=== PATIENT | male | born 1940 | race Caucasian/White ===

== ENCOUNTER 2018-09-26 05:59 | Day surgery (SDC) | payer MEDICARE, OTHER ==
[2018-09-25 15:25] LABS: BASOPHILS # (AUTO) 0.1 X10'3 (0-0.2); BASOPHILS % (AUTO) 0.7 % (0-1); EOSINOPHILS # (AUTO) 0.1 X10'3 (0-0.9); EOSINOPHILS % (AUTO) 0.6 % (0-6); HEMATOCRIT 46.8 % (42.0-52.0); HEMOGLOBIN 15.4 g/dl (14.0-17.9); LYMPHOCYTES # (AUTO) 1.1 X10'3 (1.1-4.8); LYMPHOCYTES % (AUTO) 12.5 % (21-51); MEAN CORPUSCULAR HEMOGLOBIN 30.3 PG (27.0-31.0); MEAN CORPUSCULAR HGB CONC 32.8 g/dL (33.0-36.5); MEAN CORPUSCULAR VOLUME 92.3 FL (78-98); MEAN PLATELET VOLUME 8.5 FL (7.4-10.4); MONOCYTES # (AUTO) 0.5 X10'3 (0-0.9); MONOCYTES % (AUTO) 6.3 % (2-12); NEUTROPHILS % (AUTO) 79.9 % (42-75); PLATELET COUNT 204 X10'3 (140-440); RED BLOOD COUNT 5.08 X10'6 (4.70-6.10); RED CELL DISTRIBUTION WIDTH 14.3 % (11.5-14.5); WHITE BLOOD COUNT 8.7 X10'3 (4.5-11.0)
[2018-09-25 15:39] LABS: ALANINE AMINOTRANSFERASE 28 U/L (12-78); ALBUMIN 4.2 G/DL (3.4-5.0); ALBUMIN/GLOBULIN RATIO 1.1 (1.1-1.5); ALKALINE PHOSPHATASE 205 IU/L (46-116); ANION GAP 9 (8-16); ASPARTATE AMINO TRANSFERASE 21 U/L (10-37); BILIRUBIN,TOTAL 0.8 MG/DL (0.1-1.0); BLOOD UREA NITROGEN 28 MG/DL (7-18); BUN/CREATININE RATIO 23.3 (5.4-32.0); CALCIUM 9.8 MG/DL (8.5-10.1); CHLORIDE 103 MMOL/L (99-107); CHOL/HDL RATIO 2.7 (0.00-4.99); CHOLESTEROL 167 MG/DL (0-200); GLUCOSE 104 MG/DL (70-104); HDL CHOLESTEROL 63 MG/DL (35-60); LDL CHOLESTEROL 86 MG/DL (50-100); PARTIAL THROMBOPLASTIN TIME 26 SECONDS (22-32); POTASSIUM 4.2 MMOL/L (3.5-5.1); PROTHROMBIN TIME 10.1 SECONDS (9.0-12.0); SODIUM 141 MMOL/L (135-145); TOTAL CARBON DIOXIDE 29.4 MMOL/L (24-32); TOTAL PROTEIN 7.9 G/DL (6.4-8.2); TRIGLYCERIDES 83 MG/DL (20-135); eGFR 59 ML/MIN
[~2018-09-26] VITALS: Ht 177.8 cm; Wt 105.4 kg
[2018-09-26] VITALS (10 sets, daily range): BP systolic 100–119; BP diastolic 55–66
[~2018-09-26 05:59] MED LIST: ASPI81TA52 PO; ATE25T PO; ATOR20TA PO; MULT1TAB74 PO; TRIA1TAB5 PO; UBID1CAP54 PO
[2018-09-26] MEDS ORDERED: normal saline 1000ml 1,000 ML IV SCH (06:25)
[2018-09-26] MEDS ORDERED: diphenhydrAMINE 25mg capsule PO PRN (06:25)
[2018-09-26] MEDS ORDERED: LORazepam 0.5 MG tablet PO PRN (06:25)
[2018-09-26] MEDS ORDERED: NITR0.4T51 SL (06:26)
[2018-09-26] MEDS ORDERED: IBUP200C5 PO (06:27)
[2018-09-26] MEDS ORDERED: ZINC1CAP PO (06:28)
[2018-09-26] MEDS ORDERED: PRED5TAB PO (06:29)
[2018-09-26] MEDS ORDERED: LUPRON (06:33)
[2018-09-26] MEDS ORDERED: fentaNYL/PF 50MCG/1 ML 2ML syringe ONE (07:45)
[2018-09-26] MEDS ORDERED: midazolam 2 mg/2 ml injection ONE (07:45)
[2018-09-26] MEDS ORDERED: nitroGLYCERIN-Tridil 50MG/D5W 250 ML IV ONE (07:45)
[2018-09-26] MEDS ORDERED: heparin 1,000unit/ml 10ml vial 10 ML ONE (07:46)
[2018-09-26] MEDS ORDERED: LIDOcaine 1% (10mg/ml)w/preservative injection 20ml MDV ONE (07:46)
[2018-09-26] MEDS ORDERED: iohexol 350MG/ML 100ml bottle IV ONE ×2 (07:46→09:02)
[2018-09-26] MEDS ORDERED: iohexol 350 MG/ML 50ML vial IV ONE (07:46)
[2018-09-26] MEDS ORDERED: verapamil 2.5 mg/ml inj IV ONE (08:12)
[2018-09-26 09:20] LABS: ISTAT HGB ART 12.9 g/dl (14.0-18.0); ISTAT Hct ART 38 %PCV (42-52); ISTAT O2 SATURATION ARTERIAL 93 % (95-98); ISTAT SOURCE ART
[2018-09-26 09:20] LABS: ISTAT Hct MIX 38 %PCV (42-52); ISTAT O2 SATURATION MIX VENOUS 68 % (60-80); ISTAT SOURCE MIX
== END 2018-09-26 15:35 | disposition home or self-care (01) ==
LOC: SSTAY O 05:59
PROVIDERS: ATTEND Internal Medicine Cardiovascular Disease
DX: I25.10 Atherosclerotic heart disease of native coronary artery without angina pectoris (principal); E78.5 Hyperlipidemia, unspecified; I25.2 Old myocardial infarction; I35.0 Nonrheumatic aortic (valve) stenosis; I10 Essential (primary) hypertension; Z98.61 Coronary angioplasty status; Z98.890 Other specified postprocedural states; Z88.8 Allergy status to other drugs, medicaments and biological substances; Z79.01 Long term (current) use of anticoagulants
CPT/HCPCS: 36415; 80053; 80061; 82803; 85014; 85025; 85610; 85730; 93005; 93460; 93567; 99152; 99153; A6257; J1644; J2001; J2250; J3010; J7030; Q0163; Q9967; A4620; C1769; J3490